=== PATIENT | male | born 1950 | race Hispanic/Latino ===

== ENCOUNTER 2018-08-15 01:06 | Emergency (ER) | payer MEDICARE, OTHER ==
[2018-08-15 01:07] VITALS: BMI 30.9
[2018-08-15 01:14] VITALS: PULSE 86; RESP 18; TEMP 98
[2018-08-15 03:36] VITALS: BP 150/80; O2SAT 100
== END 2018-08-15 03:36 | disposition left against medical advice (07) ==
LOC: ED 01:06
DX: Z02.89 Encounter for other administrative examinations (principal); R11.10 Vomiting, unspecified